=== PATIENT | female | born 1960 | race Caucasian/White ===

== ENCOUNTER → 2020-08-16 | Outpatient (CLI) | payer OTHER | LOC: MC.RAD 14:57 | DX: Z12.31 Encounter for screening mammogram for malignant neoplasm of breast (principal) ==

== ENCOUNTER → 2021-09-20 | Outpatient (CLI) | payer OTHER ==
[~2021-09-20] MED LIST: COREG 25MG25 MG/TAB PO; COZAAR100 MG PO; LIDODERM 5% PATC1 EA TP; SYNTHROID 0.10.15 MG PO
== END ==
LOC: MC.RAD 11:30
DX: Z12.31 Encounter for screening mammogram for malignant neoplasm of breast (principal); N63.10 Unspecified lump in the right breast, unspecified quadrant

== ENCOUNTER → 2021-09-22 | Outpatient (CLI) | payer OTHER | LOC: MC.RAD 07:45 | DX: N60.01 Solitary cyst of right breast (principal) ==

== ENCOUNTER → 2021-10-04 | Outpatient (CLI) | payer OTHER | LOC: MC.RAD 07:54 | DX: N63.10 Unspecified lump in the right breast, unspecified quadrant (principal) ==